=== PATIENT | female | born 1945 | race Hispanic/Latino ===

== ENCOUNTER 2020-02-07 16:17 | Emergency (ER) | payer MEDICARE ==
[2020-02-07] MEDS ORDERED: oxyCODONE /ACETAMINOPHEN 5-325MG TAB PO ONE (17:21)
[2020-02-07] MEDS ORDERED: TETANUS,DIPH,PERTUSS(ACELL) VACCINE 0.5 ML SYRINGE IM ONE (17:21)
--- NOTE | 2020-02-07 17:23 | Emergency Department Report ---
HPI - General Chief Complaint: Fall Time Seen by Provider: 02/07/20 17:13 - HPI HPI: 74-year-old female presents to the emergency department via EMS from home with a complaint of a scalp laceration, back pain, left sided body pain after she fell about 6 feet down from her attic down a ladder. She hit her head on 1 of the rungs but denies any loss of consciousness. She has a past medical history of previous CVA, rheumatoid arthritis, osteoarthritis, fibromyalgia. She has not taken anything for symptoms prior to presentation. She denies any vision change, slurred speech, numbness, weakness, or any other neurological deficits. ED Past Medical Hx - Past Medical History Previous Medical History?: Yes Hx Hypertension: Yes Hx CVA: Yes Hx Diabetes: Yes (oral medications) - Surgical History Past Surgical History?: Yes Additional Surgical History: hysterectomy - Social History Smoking Status: Never Smoker Substance Use Type: None - Medications Home Medications: Home Medications Medication Instructions Recorded Confirmed Last Taken Type Gabapentin 100 mg PO Q8HR 02/29/16 02/29/16 Unknown History Leflunomide 20 mg PO DAILY 02/29/16 02/29/16 Unknown History Metoprolol Xl [Metoprolol 50 mg PO QDAY 02/29/16 02/29/16 Unknown History SUCCINATE ER TAB] Pravastatin [Pravachol] 40 mg PO QHS 02/29/16 02/29/16 Unknown History Trazodone HCl [Oleptro ER] 150 mg PO QHS 02/29/16 02/29/16 Unknown History Triamter/Hctz 75-50 mg 1 tab PO DAILY 02/29/16 02/29/16 Unknown History lisinopriL [Zestril TAB] 40 mg PO QDAY 02/29/16 02/29/16 Unknown History metFORMIN [Glucophage] 500 mg PO QDAY 02/29/16 02/29/16 Unknown History metHOTREXate sodium [Trexall] 12.5 mg PO QWEEK 02/29/16 02/29/16 Unknown History ALPRAZolam [Xanax TAB] 0.5 mg PO Q12HR PRN #30 tablet 03/03/16 Unknown Rx Indomethacin [Indocin] 25 mg PO BID #30 03/03/16 02/29/16 Unknown Rx Pantoprazole [Protonix] 40 mg PO QDAY #30 tablet 03/03/16 Unknown Rx ED Review of Systems ROS: Stated complaint: FALL/HEAD LAC Other details as noted in HPI Comment: All other systems reviewed and negative Constitutional: denies: chills, fever Eyes: denies: eye pain, vision change ENT: denies: ear pain, throat pain Respiratory: denies: cough, shortness of breath Cardiovascular: chest pain (left sided rib pain). denies: palpitations Gastrointestinal: denies: abdominal pain, vomiting Genitourinary: denies: dysuria, discharge Musculoskeletal: back pain, arthralgia, myalgia Skin: other (scalp / head laceration). denies: rash Neurological: denies: weakness, numbness Physical Exam - Physical Exam Vital Signs: Vital Signs 02/07/20 16:23 Pulse Rate 69 Respiratory 16 Rate Blood Pressure 115/62 [Left] O2 Sat by Pulse 94 Oximetry Physical Exam: GENERAL: The patient is well-developed well-nourished. HENT: Normocephalic. Atraumatic. Patient has moist mucous membranes. EYES: Extraocular motions are intact. NECK: Supple. Trachea is midline. There is both midline and bilateral paraspinal tenderness to palpation but no step-off or deformity. CHEST/LUNGS: Clear to auscultation. There is no respiratory distress noted. HEART/CARDIOVASCULAR: Regular. There is no tachycardia. There is no murmur. ABDOMEN: Abdomen is soft, nontender. Patient has normal bowel sounds. There is no abdominal distention. SKIN: Skin is warm and dry. NEURO: The patient is awake, alert, and oriented. The patient is cooperative. The patient has no focal neurologic deficits. Normal speech. Cranial nerves II through XII grossly intact. MUSCULOSKELETAL: Mild tenderness to compression of the pelvis but no laxity or deformity. There is no limitation range of motion. Left upper lateral posterior rib tenderness to palpation. BACK: There is mild midline and bilateral paraspinal tenderness to palpation along the length of her back but there is no step-off or deformity. ED Course Vital Signs 02/07/20 16:23 Pulse Rate 69 Respiratory 16 Rate Blood Pressure 115/62 [Left] O2 Sat by Pulse 94 Oximetry - Laceration /Wound Repair Head Wound Location: head (Posterior scalp) Wound Length (cm): 5 Wound's Depth, Shape: irregular Wound Explored: no foreign body removed Irrigated w/ Saline (ccs): 100 Anesthesia: 1% Lidocaine, Lidocaine w/ Epi Volume Anesthetic (ccs): 6 Wound Repaired With: sutures Suture Size/Type: 4:0, nylon Number of Sutures: 10 Sterile Dressing Applied?: Yes ED Medical Decision Making - Radiology Data Radiology results: report reviewed, image reviewed interpreted by me: X-ray of the pelvis does not show any fracture, dislocation, or any acute process. CT CERVICAL SPINE WITHOUT CONTRAST INDICATION / CLINICAL INFORMATION: Trauma. Patient fell sustaining neck injury. TECHNIQUE: Axial CT images were obtained through the cervical spine. Sagittal and coronal reformatted images were produced. All CT scans at this location are performed using CT dose reduction for ALARA by means of automated exposure control. COMPARISON: None available. FINDINGS: ALIGNMENT: No significant abnormality. There is no indication of traumatic subluxation. VERTEBRAE: There is no indication of fracture. DISC SPACES: Loss of disc height is noted at the C4-5 level. Disc height is fairly well maintained elsewhere. INDIVIDUAL LEVEL ANALYSIS: C2-3:No abnormality. C3-4: Right worse than left uncovertebral arthropathy contributes to moderate right- sided C4 nerve root neuroforaminal stenosis. Central spinal canal and left C4 nerve root neuroforamina are adequately maintained. C4-5: Loss of disc height is noted. Posterior osteophyte formation is observed. There is evidence of a superimposed central and right paracentral disc herniation with apparent calcification along the posterior margin of this disc. Central spinal canal remains adequate in size. Facet and uncovertebral arthritic change contribute to left worse than right neural foraminal stenosis. C5-6: Mild left-sided foraminal narrowing. No additional abnormality. C6-7:No abnormality. C7-T1:No abnormality. CRANIOCERVICAL JUNCTION:No significant abnormality. SPINAL CANAL: Central spinal canal is adequately maintained throughout. PARASPINAL SOFT TISSUES: Calcified atherosclerotic plaque is observed at both carotid bifurcations. No additional paraspinous abnormalities are identified. ADDITIONAL FINDINGS: None. LUNG APICES: No significant abnormality of visualized lungs. IMPRESSION: 1. No indication of fracture or traumatic subluxation. 2. Evidence of right paracentral disc herniation superimposed on posterior osteophyte formation at C4-5. CT HEAD WITHOUT CONTRAST INDICATION / CLINICAL INFORMATION: Trauma. Patient fell sustaining head injury. TECHNIQUE: All CT scans at this location are performed using CT dose reduction for ALARA by means of automated exposure control. COMPARISON: Head CT 07/15/2016 and MRI brain 09/06/2018 FINDINGS: HEMORRHAGE: No evidence of intracranial hemorrhage or extra-axial fluid collection. EXTRA-AXIAL SPACES: Cortical sulci, sylvian fissures and basilar cisterns have an unremarkable appearance. VENTRICULAR SYSTEM: The ventricular system is of normal size and configuration. CEREBRAL PARENCHYMA: Periventricular and deep white matter lucencies noted consistent with microvascular ischemic changes. Similar findings were present on previous studies. No additional areas of abnormal brain parenchymal attenuation are identified. There is no indication of recent infarction. MIDLINE SHIFT OR HERNIATION: There is no mass effect. CEREBELLUM / BRAINSTEM: Brainstem and cerebellum have an unremarkable appearance. INTRACRANIAL VESSELS: Calcified atherosclerotic plaque is seen along the course of the cavernous segments of both internal carotid arteries and at the distal left vertebral artery. ORBITS: Patient is status post bilateral cataract surgery. The extracranial structures have an otherwise unremarkable appearance. SOFT TISSUES of HEAD: No significant abnormality. CALVARIUM: Evaluation of bone windows reveals no abnormalities. PARANASAL SINUSES / MASTOID AIR CELLS: Paranasal sinuses are free from inflammatory mucosal disease. Mastoid air cells are normally pneumatized. IMPRESSION: 1. No acute intracranial abnormality. No significant interval change. CT LUMBAR SPINE WITHOUT CONTRAST INDICATION / CLINICAL INFORMATION: Trauma. Patient fell sustaining back injury. Low back pain. TECHNIQUE: Axial CT images were obtained through the lumbar spine. Sagittal and coronal reformatted images were produced. All CT scans at this location are performed using CT dose reduction for ALARA by means of automated exposure control. COMPARISON: CT abdomen 07/02/2014 FINDINGS: TRAUMA: There is mild deformity of the inferior endplate L1 which has developed since previous study. There is associated mild cortical disruption along the anterior aspect of the L1 vertebral body and through the inferior endplate. This represents the sequelae of recent compression fracture. There is no sign 10% loss of vertebral body height at the L1 vertebral body in comparison to CT abdomen pelvis 07/02/2014.. No other fractures are identified in the lumbar region. ALIGNMENT: No significant abnormality of alignment in the lumbar region. VERTEBRAE: No evidence of recent compression injury inferior endplate L1 as described above. No additional fractures. DISC SPACES: Disc height is fairly well-maintained throughout. LEVEL BY LEVEL ANALYSIS: L1-2: Evidence of compression injury inferior endplate L1. No additional abnormality. L2-3: Bilateral facet arthropathy is noted. Central spinal canal and neuroforamina are adequately maintained. L3-4: Bilateral facet arthropathy is noted. Central spinal canal and neuroforamina are adequately maintained. L4-5: Advanced facet arthritic changes are noted bilaterally. Hypertrophic spurring and bilateral facet joint vacuum phenomena are demonstrated. Central spinal canal and neuroforamina are adequately maintained. L5-S1: Advanced facet arthropathy is noted. Small left paracentral calcified disc protrusion is present without associated thecal sac deformity or nerve root compression. SPINAL CANAL: Central spinal canal is adequate in size throughout the lumbar region. SACRUM:The sacrum was largely excluded from this examination. Only portions of the S1 vertebrae are visualized. PARASPINAL SOFT TISSUES: Extensively calcified atherosclerotic plaque is seen along the course of the abdominal aorta. ADDITIONAL FINDINGS: None. IMPRESSION: 1. Evidence of recent compression injury inferior endplate L1 as described above. There is less than 10% loss of vertebral body height. 2. Widespread facet arthropathy. CT THORACIC SPINE WITHOUT CONTRAST INDICATION / CLINICAL INFORMATION: Trauma. Reason fell sustaining back injury. TECHNIQUE: Axial CT images were obtained through the thoracic spine. Sagittal and coronal reformatted images were produced. All CT scans at this location are performed using CT dose reduction for ALARA by means of automated exposure control. COMPARISON: CT abdomen 07/02/2014 FINDINGS: VERTEBRAE: No indication of recent thoracic fracture is observed. Schmorl's node deformities seen at inferior endplate T11. In addition there is posterior osteophyte arising near the inferior endplate of the T11 vertebrae near the midline. This is unchanged in comparison to CT abdomen pelvis 07/02/2014 and does not represent the sequelae of recent injury. ALIGNMENT: No significant abnormality. DISC SPACES: Disc height is fairly well-maintained throughout. FACET and COSTOVERTEBRAL JOINTS: No significant abnormality. CERVICOTHORACIC JUNCTION:No significant abnormality. SPINAL CANAL: Central spinal canal is adequately maintained throughout. PARASPINAL SOFT TISSUES: No significant abnormality. Superior mediastinum and paraspinous soft tissues have an unremarkable appearance. ADDITIONAL FINDINGS: None. LUNGS: Visualized portions the lung are free from confluent infiltrate. No lung nodules are identified. There is no indication of pleural effusion. Note is made of bilateral dependent intensity. IMPRESSION: 1. No indication of recent thoracic fracture. LEFT RIBS PLUS CHEST 5 VIEWS INDICATION / CLINICAL INFORMATION: Left rib pain after fall. COMPARISON: None available. FINDINGS: BONES and JOINT(S): Acute mildly displaced fractures of the left third through fifth ribs are seen posteriorly/laterally. No dislocation. No significant arthritis. SOFT TISSUES: No acute abnormality. Generalized aortic atherosclerosis is noted. ADDITIONAL FINDINGS: None. IMPRESSION: Acute left third through fifth rib fractures. - Medical Decision Making This patient presents to the emergency department after she had a fall of about 6 feet while climbing a ladder to her attic. She did hit the back of her head on 1 of the rungs of the ladder causing a crescent-shaped posterior scalp laceration. No loss of consciousness. Her main complaint is some pain to the left upper lateral posterior rib cage and back. Patient has full range of motion of all extremities. She is awake, alert, oriented. There are no focal, motor or sensory deficits and her cranial nerves are intact. CT scan of the head does not show any bleed, shift, mass, ischemia, skull fracture, or any other acute process. CT of the cervical and thoracic spine did not show any fracture, subluxation, or any acute process. CT of the lumbar spine showed concern for a mild compression fracture of L1 with only a 10% height loss but this could have potentially been a recent injury. X-ray of the chest with left- sided ribs showed rib fractures of the third through fifth ribs. There was no pneumothorax, pleural effusions or any signs of pneumonia. Patient was given some pain control and did have improvement. The scalp laceration was sutured closed. We discussed signs/symptoms of infection, how to monitor, and when to return to the emergency department. However she understands that she must have a wound check done and potentially have the sutures removed, in about 1 week. We also had a long discussion regarding incentive spirometry so that she does not develop pneumonia with these rib fractures. The patient gets chronic pain medication from her primary care physician secondary to her rheumatoid arthritis and fibromyalgia. The patient will return to the emergency department with any worsening of her symptoms or any acute distress. Critical Care Time: No Critical care attestation.: If time is entered above; I have spent that time in minutes in the direct care of this critically ill patient, excluding procedure time. ED Disposition Clinical Impression: Fall Qualifiers: Encounter type: initial encounter Qualified Code(s): W19.XXXA - Unspecified fall, initial encounter Rib fractures Qualifiers: Encounter type: initial encounter Rib fracture type: multiple ribs Fracture type: closed Laterality: left Qualified Code(s): S22.42XA - Multiple fractures of ribs, left side, initial encounter for closed fracture Compression fracture of lumbar vertebra Qualifiers: Encounter type: initial encounter Lumbar vertebra fracture level: L1 Qualified Code(s): S32.010A - Wedge compression fracture of first lumbar vertebra, initial encounter for closed fracture Disposition: - TO HOME OR SELFCARE Is pt being admited?: No Condition: Stable Instructions: Rib Fracture (ED), Vertebral Compression Fracture (ED), Fall Prevention (ED) Additional Instructions: Please follow-up with your primary care physician as soon as you are able to do so. I am giving you a referral for a local orthopedic group, [facility], to follow-up regarding your rib fractures and the small L1 compression fracture. Return to the emergency department with any worsening of your symptoms or any acute distress. Please use the incentive spirometry at least 10 times per hour, while awake, to avoid developing pneumonia with your rib fractures. Referrals: [facility] [Provider Group] - 3-5 Days PRIMARY CARE, [Primary Care Provider] - 3-5 Days
--- NOTE | 2020-02-07 18:02 | Cat Scan Report ---
CT HEAD WITHOUT CONTRAST INDICATION / CLINICAL INFORMATION: Trauma. Patient fell sustaining head injury. TECHNIQUE: All CT scans at this location are performed using CT dose reduction for ALARA by means of automated e xposure control. COMPARISON: Head CT 07/15/2016 and MRI brain 09/06/2018 FINDINGS: HEMORRHAGE: No evidence of intracranial hemorrhage or extra-axial fluid collection. EXTRA-AXIAL SPACES: Cortical sulci, sylvian fissures and basilar cisterns have an unremarkable appear ance. VENTRICULAR SYSTEM: The ventricular system is of normal size and configuration. CEREBRAL PARENCHYMA: Periventricular and deep white matter lucencies noted consistent with microvascu lar ischemic changes. Similar findings were present on previous studies. No additional areas of abnor mal brain parenchymal attenuation are identified. There is no indication of recent infarction. MIDLINE SHIFT OR HERNIATION: There is no mass effect. CEREBELLUM / BRAINSTEM: Brainstem and cerebellum have an unremarkable appearance. INTRACRANIAL VESSELS: Calcified atherosclerotic plaque is seen along the course of the cavernous segm ents of both internal carotid arteries and at the distal left vertebral artery. ORBITS: Patient is status post bilateral cataract surgery. The extracranial structures have an otherw ise unremarkable appearance. SOFT TISSUES of HEAD: No significant abnormality. CALVARIUM: Evaluation of bone windows reveals no abnormalities. PARANASAL SINUSES / MASTOID AIR CELLS: Paranasal sinuses are free from inflammatory mucosal disease. Mastoid air cells are normally pneumatized. IMPRESSION: 1. No acute intracranial abnormality. No significant interval change. Signer Name: Antwon Gee MD Signed: 02/07/2020 5:58 PM Workstation Name: [id number]
--- NOTE | 2020-02-07 18:10 | Cat Scan Report ---
CT CERVICAL SPINE WITHOUT CONTRAST INDICATION / CLINICAL INFORMATION: Trauma. Patient fell sustaining neck injury. TECHNIQUE: Axial CT images were obtained through the cervical spine. Sagittal and coronal reformatted images wer e produced. All CT scans at this location are performed using CT dose reduction for ALARA by means of automated exposure control. COMPARISON: None available. FINDINGS: ALIGNMENT: No significant abnormality. There is no indication of traumatic subluxation. VERTEBRAE: There is no indication of fracture. DISC SPACES: Loss of disc height is noted at the C4-5 level. Disc height is fairly well maintained el sewhere. INDIVIDUAL LEVEL ANALYSIS: C2-3:No abnormality. C3-4: Right worse than left uncovertebral arthropathy contributes to moderate right-sided C4 nerve ro ot neuroforaminal stenosis. Central spinal canal and left C4 nerve root neuroforamina are adequately maintained. C4-5: Loss of disc height is noted. Posterior osteophyte formation is observed. There is evidence of a superimposed central and right paracentral disc herniation with apparent calcification along the po sterior margin of this disc. Central spinal canal remains adequate in size. Facet and uncovertebral a rthritic change contribute to left worse than right neural foraminal stenosis. C5-6: Mild left-sided foraminal narrowing. No additional abnormality. C6-7:No abnormality. C7-T1:No abnormality. CRANIOCERVICAL JUNCTION:No significant abnormality. SPINAL CANAL: Central spinal canal is adequately maintained throughout. PARASPINAL SOFT TISSUES: Calcified atherosclerotic plaque is observed at both carotid bifurcations. N o additional paraspinous abnormalities are identified. ADDITIONAL FINDINGS: None. LUNG APICES: No significant abnormality of visualized lungs. IMPRESSION: 1. No indication of fracture or traumatic subluxation. 2. Evidence of right paracentral disc herniation superimposed on posterior osteophyte formation at C4 -5. Signer Name: Antwon Gee MD Signed: 02/07/2020 6:06 PM Workstation Name: [id number]
--- NOTE | 2020-02-07 18:11 | XRay Report ---
PELVIS ONE VIEW INDICATION / CLINICAL INFORMATION: Left pelvic pain after fall. COMPARISON: Acute abdominal series from 02/29/2016. FINDINGS: BONES and JOINT(S): No acute fracture or subluxation. No significant arthritis. SOFT TISSUES: No significant abnormality. ADDITIONAL FINDINGS: None. IMPRESSION: 1. No acute findings. Signer Name: Bulmaro Craven MD Signed: 02/07/2020 6:07 PM Workstation Name: [id number]
--- NOTE | 2020-02-07 18:13 | XRay Report ---
LEFT RIBS PLUS CHEST 5 VIEWS INDICATION / CLINICAL INFORMATION: Left rib pain after fall. COMPARISON: None available. FINDINGS: BONES and JOINT(S): Acute mildly displaced fractures of the left third through fifth ribs are seen po steriorly/laterally. No dislocation. No significant arthritis. SOFT TISSUES: No acute abnormality. Generalized aortic atherosclerosis is noted. ADDITIONAL FINDINGS: None. IMPRESSION: Acute left third through fifth rib fractures. Signer Name: Bulmaro Craven MD Signed: 02/07/2020 6:09 PM Workstation Name: [id number]
--- NOTE | 2020-02-07 18:21 | Cat Scan Report ---
CT THORACIC SPINE WITHOUT CONTRAST INDICATION / CLINICAL INFORMATION: Trauma. Reason fell sustaining back injury. TECHNIQUE: Axial CT images were obtained through the thoracic spine. Sagittal and coronal reformatted images wer e produced. All CT scans at this location are performed using CT dose reduction for ALARA by means of automated exposure control. COMPARISON: CT abdomen 07/02/2014 FINDINGS: VERTEBRAE: No indication of recent thoracic fracture is observed. Schmorl's node deformities seen at inferior endplate T11. In addition there is posterior osteophyte arising near the inferior endplate o f the T11 vertebrae near the midline. This is unchanged in comparison to CT abdomen pelvis 07/02/2014 and does not represent the sequelae of recent injury. ALIGNMENT: No significant abnormality. DISC SPACES: Disc height is fairly well-maintained throughout. FACET and COSTOVERTEBRAL JOINTS: No significant abnormality. CERVICOTHORACIC JUNCTION:No significant abnormality. SPINAL CANAL: Central spinal canal is adequately maintained throughout. PARASPINAL SOFT TISSUES: No significant abnormality. Superior mediastinum and paraspinous soft tissue s have an unremarkable appearance. ADDITIONAL FINDINGS: None. LUNGS: Visualized portions the lung are free from confluent infiltrate. No lung nodules are identifie d. There is no indication of pleural effusion. Note is made of bilateral dependent intensity. IMPRESSION: 1. No indication of recent thoracic fracture. Signer Name: Antwon Gee MD Signed: 02/07/2020 6:16 PM Workstation Name: [id number]
--- NOTE | 2020-02-07 18:28 | Cat Scan Report ---
CT LUMBAR SPINE WITHOUT CONTRAST INDICATION / CLINICAL INFORMATION: Trauma. Patient fell sustaining back injury. Low back pain. TECHNIQUE: Axial CT images were obtained through the lumbar spine. Sagittal and coronal reformatted images were produced. All CT scans at this location are performed using CT dose reduction for ALARA by means of a utomated exposure control. COMPARISON: CT abdomen 07/02/2014 FINDINGS: TRAUMA: There is mild deformity of the inferior endplate L1 which has developed since previous study. There is associated mild cortical disruption along the anterior aspect of the L1 vertebral body and through the inferior endplate. This represents the sequelae of recent compression fracture. There is no sign 10% loss of vertebral body height at the L1 vertebral body in comparison to CT abdomen pelvis 07/02/2014.. No other fractures are identified in the lumbar region. ALIGNMENT: No significant abnormality of alignment in the lumbar region. VERTEBRAE: No evidence of recent compression injury inferior endplate L1 as described above. No addit ional fractures. DISC SPACES: Disc height is fairly well-maintained throughout. LEVEL BY LEVEL ANALYSIS: L1-2: Evidence of compression injury inferior endplate L1. No additional abnormality. L2-3: Bilateral facet arthropathy is noted. Central spinal canal and neuroforamina are adequately shelley ntained. L3-4: Bilateral facet arthropathy is noted. Central spinal canal and neuroforamina are adequately shelley ntained. L4-5: Advanced facet arthritic changes are noted bilaterally. Hypertrophic spurring and bilateral fac et joint vacuum phenomena are demonstrated. Central spinal canal and neuroforamina are adequately shelley ntained. L5-S1: Advanced facet arthropathy is noted. Small left paracentral calcified disc protrusion is prese nt without associated thecal sac deformity or nerve root compression. SPINAL CANAL: Central spinal canal is adequate in size throughout the lumbar region. SACRUM:The sacrum was largely excluded from this examination. Only portions of the S1 vertebrae are v isualized. PARASPINAL SOFT TISSUES: Extensively calcified atherosclerotic plaque is seen along the course of the abdominal aorta. ADDITIONAL FINDINGS: None. IMPRESSION: 1. Evidence of recent compression injury inferior endplate L1 as described above. There is less than 10% loss of vertebral body height. 2. Widespread facet arthropathy. Signer Name: Antwon Gee MD Signed: 02/07/2020 6:24 PM Workstation Name: [id number]
[2020-02-07] MEDS ORDERED: LIDOCAINE 1%/EPINEPHRINE 1:100,000 VIAL (20 ML) INFILTRATI NR (19:00)
[2020-02-07] MEDS ORDERED: MORPHINE 4 MG/1 ML INJ IM ONE (19:36)
[2020-02-07] MEDS ORDERED: KETOROLAC 30 MG/1 ML INJ IM ONE (19:37)
[2020-02-07] MEDS ORDERED: IPRATROPIUM/ALBUTEROL SULFATE 3 ML AMPUL.NEB IH ONE (21:01)
[2020-02-07 23:01] VITALS: BP 145/79
== END 2020-02-07 23:03 | disposition home or self-care (01) ==
LOC: ED 16:17
PROC: 0HQ0XZZ Repair Scalp Skin, External Approach (ICD-10-PCS; principal; 2020-02-07)
DX: S22.42XA Multiple fractures of ribs, left side, initial encounter for closed fracture (principal); S32.010A Wedge compression fracture of first lumbar vertebra, initial encounter for closed fracture; I10 Essential (primary) hypertension; E11.9 Type 2 diabetes mellitus without complications; Z86.73 Personal history of transient ischemic attack (TIA), and cerebral infarction without residual deficits; Z90.710 Acquired absence of both cervix and uterus; Z79.899 Other long term (current) drug therapy; W11.XXXA Fall on and from ladder, initial encounter; Y93.89 Activity, other specified; Y92.89 Other specified places as the place of occurrence of the external cause; Y99.8 Other external cause status
CPT/HCPCS: 12002; 70450; 71101; 72125; 72128; 72131; 72170; 90471; 90715; 94640; 96372; 99284; J1885; J2270; 94644

== ENCOUNTER 2021-01-03 07:51 | Day surgery (SDC) | payer BC, MEDICARE ==
[2020-12-30 11:31] LABS: Hematocrit 41.8 % (30.3-42.9); Hemoglobin 14.4 gm/dl (10.1-14.3); Mean Corpuscular HGB Conc 34 % (30-34); Mean Corpuscular Volume 101 fl (79-97); Platelet Count 262 K/mm3 (140-440); Red Blood Count 4.14 M/mm3 (3.65-5.03); Red Cell Distribution Width 13.1 % (13.2-15.2)
[2020-12-30 11:55] LABS: Alanine Aminotransferase 16 units/L (7-56); Albumin 4.4 g/dL (3.9-5); BUN/Creatinine Ratio 24; Blood Urea Nitrogen 22 mg/dL (7-17); Calcium 9.3 mg/dL (8.4-10.2); Hemolysis Index 20
[~2021-01-03 07:51] MED LIST: LACTATED RINGERS 1,000 ML IV SCH
--- NOTE | 2021-01-03 08:07 | Anesthesia Consultation ---
Anesthesia Consult and Med Hx Date of service: 01/03/21 - Airway Anesthetic Teeth Evaluation: Good ROM Head & Neck: Adequate Mental/Hyoid Distance: Adequate Mallampati Class: Class II Intubation Access Assessment: Probably Good - Pulmonary Exam CTA: Yes - Cardiac Exam Cardiac Exam: RRR - Pre-Operative Health Status ASA Pre-Surgery Classification: ASA3 Proposed Anesthetic Plan: General - Pulmonary Hx Smoking: No Hx Asthma: Yes (PRN INHALER) COPD: No Hx Sleep Apnea: No (ASHWINI PRE SCREEN HIGH RISK) - Cardiovascular System Hx Hypertension: Yes (X 20 YRS) Hx Heart Attack/AMI: No Hx Angina: No - Central Nervous System 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
[2021-01-03] MEDS ORDERED: ceFAZolin/STERILE WATER 2 GM/20 ML SYRINGE IV NR (08:08)
--- NOTE | 2021-01-03 08:10 | Anesthesia Day of Surgery ---
Anesthesia Day of Surgery - Day of Surgery Patient Examined: Yes Patient H&P Reviewed: Yes Patient is NPO: Yes Beta Blockers: No Cardiac Clearance: No Pulmonary Clearance: No Geoffrey's Test: N/A
[2021-01-03] MEDS ORDERED: HYDROcodone/ACETAMINOPHEN 5-325 MG TAB PO PRN (08:26)
[2021-01-03] MEDS ORDERED: ONDANSETRON 4 MG/2 ML INJ IV PRN (08:26)
[2021-01-03] MEDS ORDERED: METOPROLOL SUCCINATE XL 100 MG TAB PO ONE (08:30)
[2021-01-03] MEDS ORDERED: MIDAZOLAM 2 MG/2 ML INJ IV NR (09:00)
[2021-01-03] MEDS ORDERED: SODIUM CHLORIDE 0.9% IRRIG SOLN 2000 ML IR ONE (09:04)
[2021-01-03] MEDS ORDERED: WATER FOR IRRIG STERILE 1,500 ML BOTTLE IR ONE (09:04)
[2021-01-03] MEDS ORDERED: IOHEXOL 300 MG/ML 50ML IV ONE (09:05)
[2021-01-03] MEDS ORDERED: HYDROmorphone 1 MG/1 ML INJ ONE (09:23)
[2021-01-03] MEDS ORDERED: LIDOCAINE MPF (2%) 20 MG/1 ML VIAL 5 ML ONE (09:24)
[2021-01-03] MEDS ORDERED: propofoL 200 MG/20 ML VIAL IV ONE (09:24)
[2021-01-03] MEDS ORDERED: PHENYLEPHRINE/NS 1,000 MCG/10 ML SYRINGE (OR USE) IV ONE (10:06)
--- NOTE | 2021-01-03 10:20 | Discharge Summary ---
Short Stay Discharge Plan Activity: no restrictions, other Weight Bearing Status: Full Weight Bearing Diet: low fat Special Instructions: other (inc fluids ) Follow up with: PRIMARY CARE, [Primary Care Provider] - 7 Days MIRZA CORREA MD [Staff Physician] - 6 Weeks
--- NOTE | 2021-01-03 10:21 | Post Operative Note ---
Date of procedure: 01/03/21 Pre-op diagnosis: chronic cystotos Post-op diagnosis: same Findings: normal Procedure: cysto hydro rpgs Anesthesia: GETA Estimated blood loss: none Pathology: none Condition: stable Disposition: PACU
[2021-01-03] MEDS: fentaNYL 100 MCG/2 ML INJ IV PRN ×2 (10:42→10:52)
--- NOTE | 2021-01-03 11:12 | Operative Report ---
PREOPERATIVE DIAGNOSIS: Chronic cystitis. POSTOPERATIVE DIAGNOSIS: Chronic cystitis. PROCEDURE: Cystoscopy, hydrodistention ___. SURGEON: Dr. Olivares. ANESTHESIA: General. FINDINGS: This is a woman with chronic pain and discomfort. She now presents for cystoscopy. DESCRIPTION OF PROCEDURE: The patient was brought to the operating room and placed on the operating table. Following induction of anesthesia, placed in lithotomy position, prepped and draped in the usual sterile fashion. Cystourethroscopy showed no bladder lesions. The bladder was quite floppy. No biopsies were required. Retrograde showed delicate system bilaterally. The patient tolerated the procedure well. No significant complications. Bimanual exam was unremarkable. No masses, no bleeding, brought to recovery room without a catheter and in stable condition. JOB# [id number] CHAVEZ/ARIELLE
[2021-01-03 11:25] VITALS: BP 154/71
--- NOTE | 2021-01-03 12:44 | Post Anesthesia Evaluation ---
- Post Anesthesia Evaluation Patient Participated: Yes Airway Patent: Yes Stable Respiratory Function: Yes Nausea/Vomiting: No Temp > 96.8F: Yes Pain Manageable: Yes Adequeate Hydration: Yes Anesthesia Complications: No
--- NOTE | 2021-01-03 14:26 | Fluoroscopy Report ---
FLUOROSCOPY RETROGRADE UROGRAPHY HISTORY: None FINDINGS: Fluoroscopy was provided by radiology during retrograde urography by the urologist. There i s normal filling of both renal collecting systems. No filling defect or abnormal dilatation is identi fied. IMPRESSION: Unremarkable bilateral retrograde pyelograms Fluoroscopy time: 8 seconds Fluoroscopic images: 6 Signer Name: Dedrick Price Jr, MD Signed: 01/03/2021 2:21 PM Workstation Name: [id number]
== END 2021-01-03 12:00 | disposition home or self-care (01) ==
LOC: OR 07:51
PROVIDERS: ATTEND Urology
DX: N30.20 Other chronic cystitis without hematuria (principal); Z20.828 Contact with and (suspected) exposure to other viral communicable diseases; E11.9 Type 2 diabetes mellitus without complications; E78.00 Pure hypercholesterolemia, unspecified; I10 Essential (primary) hypertension; J45.909 Unspecified asthma, uncomplicated; K21.9 Gastro-esophageal reflux disease without esophagitis; M06.9 Rheumatoid arthritis, unspecified; F41.9 Anxiety disorder, unspecified; Z79.84 Long term (current) use of oral hypoglycemic drugs; Z79.899 Other long term (current) drug therapy; Z90.710 Acquired absence of both cervix and uterus; Z91.81 History of falling; Z98.890 Other specified postprocedural states; Z86.73 Personal history of transient ischemic attack (TIA), and cerebral infarction without residual deficits
CPT/HCPCS: 36415; 52005; 74420; 80053; 82962; 85027; A4217; C1758; J0690; J1170; J2250; J2370; J2704; J3010; J7120; Q9967; U0003